=== PATIENT | male | born 1970 | race Two or more races ===

== ENCOUNTER 2016-12-03 12:49 | Emergency (ER) | payer MEDICAID ==
[2016-12-03 13:16] VITALS: BP 118/77
--- NOTE | 2016-12-03 13:28 | EDM.PDOC ---
ED HPI GENERAL MEDICAL PROBLEM - General Chief Complaint: Respiratory Problem Stated Complaint: FEVER COUGH AND SWEATING Time Seen by Provider: 12/03/16 13:22 Source of Information: Reports: Patient History Limitations: Reports: No Limitations - History of Present Illness INITIAL COMMENTS - FREE TEXT/NARRATIVE: With intermittent wheezing, chills x several weeks. Taking antibiotics, unsure what it is. Using nebulizer at home. Fevers up to 100.5. 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: Acetaminophen, Aspirin, Breathing Treatments - Related Data Allergies Allergy/AdvReac Type Severity Reaction Status Date / Time Penicillins Allergy Unknown Rash Verified 12/03/16 13:10 Home Meds: Home Meds NK [No Known Home Meds] 12/03/16 [History] Past Medical History HEENT History: Reports: Allergic Rhinitis Respiratory History: Reports: Bronchitis, Recurrent, TB, Other (See Below) Other Respiratory History: latent tb when diagnosed, treated Gastrointestinal History: Reports: GERD Musculoskeletal History: Reports: Back Pain, Chronic, Fracture Neurological History: Reports: Head Trauma Psychiatric History: Reports: Depression - Past Surgical History Musculoskeletal Surgical History: Reports: ORIF Social & Family History - Tobacco Use Smoking Status *Q: Heavy Tobacco Smoker Years of Tobacco use: 7 Packs/Tins Daily: 1 Used Tobacco, but Quit: No Second Hand Smoke Exposure: No - Alcohol Use Days Per Week of Alcohol Use: 0 - Recreational Drug Use Recreational Drug Use: Yes Recreational Drug Type: Reports: Marijuana/Hashish Recreational Drug Use Frequency: Daily ED ROS GENERAL - Review of Systems Review Of Systems: See Below Constitutional: Reports: Fever, Chills, Night Sweats HEENT: Reports: No Symptoms Respiratory: Reports: Shortness of Breath, Wheezing, Cough Cardiovascular: Reports: No Symptoms Endocrine: Reports: No Symptoms GI/Abdominal: Reports: No Symptoms Musculoskeletal: Reports: No Symptoms Skin: Reports: No Symptoms Neurological: Reports: No Symptoms Psychiatric: Reports: No Symptoms Hematologic/Lymphatic: Reports: No Symptoms ED EXAM, GENERAL - Physical Exam Exam: See Below Exam Limited By: No Limitations General Appearance: Alert, WD/WN, No Apparent Distress Ears: Normal External Exam, Normal Canal, Hearing Grossly Normal, Normal TMs Nose: Normal Inspection, Normal Mucosa, No Blood Throat/Mouth: Normal Inspection, Normal Lips, Normal Teeth, Normal Gums, Normal Oropharynx, Normal Voice, No Airway Compromise Head: Atraumatic, Normocephalic Neck: Normal Inspection, Supple, Non-Tender, Full Range of Motion Respiratory/Chest: Rhonchi, Wheezing Cardiovascular: Normal Peripheral Pulses, Regular Rate, Rhythm, No Edema, No Gallop, No JVD, No Murmur, No Rub Extremities: Normal Inspection, Normal Range of Motion, Non-Tender, Normal Capillary Refill, No Pedal Edema Course - Vital Signs Last Recorded V/S: Last Vital Signs Temp 97.1 F 12/03/16 13:09 Pulse 85 12/03/16 13:09 Resp 18 12/03/16 13:09 BP 118/77 12/03/16 13:09 Pulse Ox 100 12/03/16 13:09 - Orders/Labs/Meds Orders: Active Orders 24 hr Category Date Time Status Chest 2V [CR] Stat Exams 12/03/16 13:27 Taken cefTRIAXone [Rocephin] Med 12/03/16 13:47 Once 1 gm IM ONETIME ONE Labs: Laboratory Tests 12/03/16 Range/Units 13:27 WBC 14.2 H (4.5-11.0) K/uL RBC 5.08 (4.30-5.90) M/uL Hgb 15.8 H (12.0-15.0) g/dL Hct 46.4 (40.0-54.0) % MCV 91 (80-98) fL MCH 31 (27-31) pg MCHC 34 (32-36) % Plt Count 369 (150-400) K/uL Neut % (Auto) 76 H (36-66) % Lymph % (Auto) 12 L (24-44) % Elliott % (Auto) 10 H (2-6) % Eos % (Auto) 0 L (2-4) % Baso % (Auto) 1 (0-1) % Meds: Medications Discontinued Medications Generic Name Dose Route Start Last Admin Trade Name Freq PRN Reason Stop Dose Admin Methylprednisolone Sodium Succinate 125 mg 12/03/16 13:40 Solu-Medrol IM 12/03/16 13:41 ONETIME ONE Departure - Departure Time of Disposition: 13:48 Disposition: Home, Self-Care 01 Condition: Good Clinical Impression: Pneumonia involving right lung Qualifiers: Pneumonia type: due to unspecified organism Lung location: middle lobe of lung Qualified Code(s): J18.1 - Lobar pneumonia, unspecified organism - Discharge Information Instructions: Community-Acquired Pneumonia, Adult, [id number] Referrals: PCP,None [Primary Care Provider] - Forms: ED Department Discharge Additional Instructions: WBC elevated. Chest xray shows right middle lobe pneumonia. COPD changes noted. Strongly encourage smoking cessation. Rocephin 1gm IM, Solumedrol 125mg IM given today. Pt to start Zpak and Medrol Dosepak as directed tomorrow. Rx for Proair inhaler 2 puffs QID as needed for cough written. Increase fluids, rest. Pt to followup if fever or symptoms persist or worsen. - Problem List & Annotations (1) Pneumonia involving right lung SNOMED Code(s): 348813066 Code(s): J18.9 - PNEUMONIA, UNSPECIFIED ORGANISM Status: Acute Priority: Medium Current Visit: Yes Qualifiers: Pneumonia type: due to unspecified organism Lung location: middle lobe of lung Qualified Code(s): J18.1 - Lobar pneumonia, unspecified organism - My Orders Last 24 Hours: My Active Orders 12/03/16 13:27 Chest 2V [CR] Stat 12/03/16 13:47 cefTRIAXone [Rocephin] 1 gm IM ONETIME ONE - Assessment/Plan Last 24 Hours: My Active Orders 12/03/16 13:27 Chest 2V [CR] Stat 12/03/16 13:47 cefTRIAXone [Rocephin] 1 gm IM ONETIME ONE
[2016-12-03] MEDS ORDERED: methylPREDNISolone Sodium Succinate 125 MG/2 ML SDV IM ONE (13:40)
[2016-12-03] MEDS ORDERED: cefTRIAXone 1 GM Vial IM ONE (13:47)
--- NOTE | 2016-12-06 08:27 | CR ---
Chest 2V HISTORY: Fever cough. COMPARISON: 12/02/2010 FINDINGS: There is some faint density in the right lower lobe some of this could represent overlying breast attenuation. Early infiltrate not excluded. Slightly rotated film to the left. No effusions. C ardiac size is normal. No acute congestive change.
== END 2016-12-03 14:53 | disposition home or self-care (01) ==
LOC: JP.ED 12:49
DX: J18.9 Pneumonia, unspecified organism (principal); K21.9 Gastro-esophageal reflux disease without esophagitis; F17.210 Nicotine dependence, cigarettes, uncomplicated; Z88.0 Allergy status to penicillin
CPT/HCPCS: 36415; 71020; 85025; 96372; 99284; J0696; J2930

== ENCOUNTER 2018-08-17 18:02 | Emergency (ER) | payer SELFPAY ==
[2018-08-17 19:59] VITALS: BP 131/87
--- NOTE | 2018-08-17 21:40 | EDM.PDOC ---
ED HPI GENERAL MEDICAL PROBLEM - General Chief Complaint: Eye Problems Stated Complaint: EYE INFECTION Time Seen by Provider: 08/17/18 20:55 Source of Information: Reports: Patient History Limitations: Reports: No Limitations - History of Present Illness INITIAL COMMENTS - FREE TEXT/NARRATIVE: 48-year-old male started noticing swelling of his left lower eyelid yesterday. Pain level 1/10. He has been applying some warm compresses and took some amoxicillin without relief. He denies any discharge from the eye or change in vision. No respiratory symptoms. right eye Pain Score (Numeric/FACES): 4 - Related Data Allergies Allergy/AdvReac Type Severity Reaction Status Date / Time Penicillins Allergy Unknown Rash Verified 08/17/18 20:29 Home Meds: Home Meds NK [No Known Home Meds] 12/03/16 [History] Past Medical History HEENT History: Reports: Allergic Rhinitis Respiratory History: Reports: Bronchitis, Recurrent, TB, Other (See Below) Other Respiratory History: latent tb when diagnosed, treated Gastrointestinal History: Reports: GERD Musculoskeletal History: Reports: Back Pain, Chronic, Fracture Neurological History: Reports: Head Trauma Psychiatric History: Reports: Depression - Past Surgical History Musculoskeletal Surgical History: Reports: ORIF, Other (See Below) Other Musculoskeletal Surgeries/Procedures:: right ankle surgically repaired Social & Family History - Tobacco Use Smoking Status *Q: Current Every Day Smoker Years of Tobacco use: 30 Packs/Tins Daily: 1 - Caffeine Use Caffeine Use: Reports: Soda - Recreational Drug Use Recreational Drug Use: Yes Drug Use in Last 12 Months: Yes Recreational Drug Type: Reports: Marijuana/Hashish Recreational Drug Use Frequency: Daily ED ROS GENERAL - Review of Systems Review Of Systems: See Below Constitutional: Denies: Fever, Chills, Weakness HEENT: Denies: Ear Pain, Rhinitis, Throat Pain Respiratory: Reports: No Symptoms Cardiovascular: Reports: No Symptoms ED EXAM GENERAL W FULL EYE - Physical Exam Exam: See Below Exam Limited By: No Limitations General Appearance: Alert Eyelids: Left: Stye (Lower eyelid) Conjunctiva & Sclera: Bilateral: Normal Appearance, Conjunctival Edema, Discharge, Foreign Body, Injected, Subconjuctival Hemorrhage Cornea Exam: Bilateral: Normal Appearance, Corneal Abrasion, Foreign Body Ears: Normal External Exam Nose: Normal Inspection Throat/Mouth: Normal Inspection Course - Vital Signs Last Recorded V/S: Last Vital Signs Temp 35.7 C 05/17/19 20:29 Pulse 53 L 08/17/18 20:29 Resp 14 08/17/18 20:29 BP 131/87 08/17/18 20:29 Pulse Ox 97 08/17/18 20:29 Departure - Departure Time of Disposition: 21:40 Disposition: Home, Self-Care 01 Condition: Good Clinical Impression: Hordeolum externum left lower eyelid - Discharge Information *PRESCRIPTION DRUG MONITORING PROGRAM REVIEWED*: No *COPY OF PRESCRIPTION DRUG MONITORING REPORT IN PATIENT CARRIE: No Instructions: Melissa Referrals: PCP,None [Primary Care Provider] - Forms: ED Department Discharge Additional Instructions: Sulfacetamide ophthalmologic drops prescribed. Warm compresses and eyelid massage frequently. Care Plan Goals: Follow-up with primary provider if not improving in one week. - Problem List & Annotations (1) Hordeolum externum left lower eyelid SNOMED Code(s): 472484816017986 Code(s): H00.015 - HORDEOLUM EXTERNUM LEFT LOWER EYELID Status: Acute
== END 2018-08-17 22:00 | disposition home or self-care (01) ==
LOC: JP.ED 18:02
DX: H00.015 Hordeolum externum left lower eyelid (principal); F17.210 Nicotine dependence, cigarettes, uncomplicated; Z88.0 Allergy status to penicillin
CPT/HCPCS: 99283

== ENCOUNTER 2018-12-12 08:21 | Emergency (ER) | payer SELFPAY ==
[2018-12-12 08:33] VITALS: BP 140/79; PULSE 73
[2018-12-12] MEDS ORDERED: Albuterol/Ipratropium 3.0-0.5 MG/3 ML Neb Soln NEB ONE (09:01)
--- NOTE | 2018-12-12 09:05 | EDM.PDOC ---
ED HPI GENERAL MEDICAL PROBLEM - General Chief Complaint: Respiratory Problem Stated Complaint: RIGHT SIDE LUNG PAIN/COUGH,SOB Time Seen by Provider: 12/12/18 08:50 Source of Information: Reports: Patient History Limitations: Reports: No Limitations - History of Present Illness INITIAL COMMENTS - FREE TEXT/NARRATIVE: 48-year-old male with 2 weeks of cough, increasing shortness of breath and now productive of green sputum with right upper back pain. No fevers or chills. He does have a history of "pneumonia". He is a smoker, recently was vaping and uses medical marijuana Onset: Gradual Duration: Week(s): (Symptoms for 2 weeks) Associated Symptoms: Reports: Cough, Malaise, Shortness of Breath. Denies: Fever/Chills Right Lower Back Pain Score (Numeric/FACES): 6 - Related Data Allergies Allergy/AdvReac Type Severity Reaction Status Date / Time Penicillins Allergy Unknown Rash Verified 12/12/18 08:28 Home Meds: Home Meds NK [No Known Home Meds] 12/03/16 [History] Medical Marijauna 12/12/18 [History] Past Medical History HEENT History: Reports: Allergic Rhinitis Respiratory History: Reports: Bronchitis, Recurrent, TB, Other (See Below) Other Respiratory History: latent tb when diagnosed, treated Gastrointestinal History: Reports: GERD Musculoskeletal History: Reports: Back Pain, Chronic, Fracture Neurological History: Reports: Head Trauma Psychiatric History: Reports: Depression - Infectious Disease History Infectious Disease History: Reports: Chicken Pox - Past Surgical History Musculoskeletal Surgical History: Reports: ORIF, Other (See Below) Other Musculoskeletal Surgeries/Procedures:: right ankle surgically repaired Social & Family History - Tobacco Use Smoking Status *Q: Current Every Day Smoker Years of Tobacco use: 20 Packs/Tins Daily: 1 Used Tobacco, but Quit: No Second Hand Smoke Exposure: Yes - Caffeine Use Caffeine Use: Reports: Soda - Recreational Drug Use Recreational Drug Use: Yes Recreational Drug Type: Reports: Marijuana/Hashish Recreational Drug Use Frequency: Daily ED ROS GENERAL - Review of Systems Review Of Systems: See Below Constitutional: Reports: Malaise. Denies: Fever, Chills Respiratory: Reports: Shortness of Breath, Cough, Sputum Cardiovascular: Reports: Chest Pain (Right posterior shoulder and chest wall pain) GI/Abdominal: Reports: No Symptoms Musculoskeletal: Reports: Back Pain (Chronic low back pain) Skin: Reports: No Symptoms Neurological: Denies: Headache ED EXAM, GENERAL - Physical Exam Exam: See Below Exam Limited By: No Limitations General Appearance: Alert, No Apparent Distress, Other (Persistent cough) Ears: Normal TMs Throat/Mouth: Normal Inspection Head: Atraumatic Respiratory/Chest: No Respiratory Distress, Other (Diffuse inspiratory and expiratory wheezes are heard with rhonchi especially in the upper right lung) Cardiovascular: Regular Rate, Rhythm. No: Tachycardia Neurological: Alert, Oriented Psychiatric: Normal Affect, Normal Mood Skin Exam: Warm, Dry Course - Vital Signs Last Recorded V/S: Last Vital Signs Temp 95.9 F 12/12/18 08:41 Pulse 73 12/12/18 08:41 Resp 16 12/12/18 08:41 BP 140/79 12/12/18 08:41 Pulse Ox 93 L 12/12/18 08:41 - Orders/Labs/Meds Orders: Active Orders 24 hr Category Date Time Status RT Aerosol Therapy [RC] ASDIRECTED Care 12/12/18 09:01 Active Meds: Medications Discontinued Medications Generic Name Dose Route Start Last Admin Trade Name Lizandro PRN Reason Stop Dose Admin Albuterol/Ipratropium 3 ml 12/12/18 09:01 12/12/18 09:09 Duoneb 3.0-0.5 Mg/3 Ml NEB 12/12/18 09:02 3 ml ONETIME ONE Administration - Re-Assessments/Exams Free Text/Narrative Re-Assessment/Exam: 12/12/18 09:05 A two-view chest x-ray along with a DuoNeb was provided. 12/12/18 09:35 Chest x-ray is normal and the patient had real good objective and subjective improvement from the DuoNeb. He'll be placed on 60 mg of prednisone daily for the next 3-5 days, and also a Zithromax course. Departure - Departure Time of Disposition: 10:00 Disposition: Home, Self-Care 01 Clinical Impression: Bronchitis - Discharge Information Instructions: Acute Bronchitis, Adult, [id number] Referrals: PCP,None [Primary Care Provider] - Forms: ED Department Discharge Care Plan Goals: Take the full course of Zithromax antibiotic as prescribed, and take 6 pills of prednisone with food with your first meal of the day for the next 3-5 days. Try to reduce smoking if possible, and consider rechecking in 2-3 days if not improving satisfactorily. - My Orders Last 24 Hours: My Active Orders 12/12/18 09:01 RT Aerosol Therapy [RC] ASDIRECTED - Assessment/Plan Last 24 Hours: My Active Orders 12/12/18 09:01 RT Aerosol Therapy [RC] ASDIRECTED
--- NOTE | 2018-12-12 09:57 | CRLCR ---
INDICATION: Shortness of breath COMPARISON: Two view chest dated 12/03/2016 TECHNIQUE: Two view chest. FINDINGS: The lungs are clear. There is no evident pneumothorax. The heart, mediastinum and pulmonary vessels are of normal size. There is no evidence of pleural fluid. IMPRESSION: Negative chest. Dictated by Erasmo Sesay MD @ 12/12/2018 9:56:15 AM Dictated by: Erasmo Sesay MD @ 12/12/2018 09:56:28 (Electronically Signed)
== END 2018-12-12 10:00 | disposition home or self-care (01) ==
LOC: JP.ED 08:21
DX: J40 Bronchitis, not specified as acute or chronic (principal); F17.210 Nicotine dependence, cigarettes, uncomplicated; Z88.0 Allergy status to penicillin
CPT/HCPCS: 71046; 94640; 99285-25; J7620-GY

== ENCOUNTER 2019-12-14 19:03 | Emergency (ER) | payer SELFPAY ==
[2019-12-14 19:31] VITALS: BP 129/72; PULSE 57
[2019-12-14] MEDS ORDERED: Albuterol 0.083% 2.5 MG/3 ML Neb Soln NEB ONE (19:41)
--- NOTE | 2019-12-14 19:50 | EDM.PDOC ---
ED HPI GENERAL MEDICAL PROBLEM - General Chief Complaint: Respiratory Problem Stated Complaint: SHARP PAIN RT SIDE,COUGH Time Seen by Provider: 12/14/19 19:35 Source of Information: Reports: Patient, RN History Limitations: Reports: No Limitations - History of Present Illness INITIAL COMMENTS - FREE TEXT/NARRATIVE: 49 yo male smoker presents with wheezing and pleuritic R lower/anterior chest pain. Sx's for 4-5 days. Has been here in the past for similar sx's, but does not still have a family doctor. He denies fever. His cough is nonproductive. He smokes cigarettes at a rate of about 1 ppd and also smoker marijuana. Onset: Gradual Onset Date: 12/09/19 Duration: Day(s): (4-5), Getting Worse Location: Reports: Chest Quality: Reports: Sharp, Stabbing Severity: Moderate Improves with: Reports: Other (holding his breath) Worsens with: Reports: Breathing Context: Reports: Other (See HPI) Associated Symptoms: Reports: Chest Pain (pleuritic), Cough, Shortness of Breath. 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 MANAGER: Reports: Other (see below) (none) - Related Data Allergies Allergy/AdvReac Type Severity Reaction Status Date / Time Penicillins Allergy Unknown Rash Verified 12/14/19 19:16 Home Meds: Home Meds [facility] 12/12/18 [History] Albuterol/Ipratropium [Combivent Respimat] 2 inhalation IH Q6H PRN #1 aer.w.adap 12/14/19 [Rx] diphenhydrAMINE HCL [Benadryl] 25 mg PO BID PRN 12/14/19 [History] predniSONE [Prednisone] 10 mg PO TID #16 tab.ds.pk 12/14/19 [Rx] Past Medical History HEENT History: Reports: Allergic Rhinitis Respiratory History: Reports: Bronchitis, Recurrent, TB, Other (See Below) Other Respiratory History: latent tb when diagnosed, treated in 1994 Gastrointestinal History: Reports: GERD Musculoskeletal History: Reports: Back Pain, Chronic, Fracture, Other (See Below) Other Musculoskeletal History: degenerative disk disease Neurological History: Reports: Head Trauma Psychiatric History: Reports: Addiction, Depression - Infectious Disease History Infectious Disease History: Reports: Chicken Pox - Past Surgical History HEENT Surgical History: Reports: None Respiratory Surgical History: Reports: None Neurological Surgical History: Reports: None Musculoskeletal Surgical History: Reports: ORIF, Other (See Below) Other Musculoskeletal Surgeries/Procedures:: right ankle surgically repaired Social & Family History - Family History Family Medical History: Noncontributory - Tobacco Use Smoking Status *Q: Current Every Day Smoker Years of Tobacco use: 15 Packs/Tins Daily: 1 - Caffeine Use Caffeine Use: Reports: Soda - Recreational Drug Use Recreational Drug Use: No Other Recreational Drug Type: medical canibus use. ED ROS GENERAL - Review of Systems Review Of Systems: See Below Constitutional: Reports: No Symptoms HEENT: Reports: No Symptoms Respiratory: Reports: Shortness of Breath, Wheezing, Pleuritic Chest Pain, Cough. Denies: Sputum, Hemoptysis Cardiovascular: Reports: No Symptoms Endocrine: Reports: No Symptoms GI/Abdominal: Reports: No Symptoms : Reports: No Symptoms Musculoskeletal: Reports: No Symptoms Skin: Reports: No Symptoms Neurological: Reports: No Symptoms ED EXAM, GENERAL - Physical Exam Exam: See Below Exam Limited By: No Limitations General Appearance: Alert, WD/WN, No Apparent Distress Eye Exam: Bilateral Eye: Normal Inspection Ears: Normal External Exam, Normal Canal, Hearing Grossly Normal, Normal TMs Ear Exam: Bilateral Ear: Auricle Normal, Canal Normal, TM normal Nose: Normal Inspection, No Blood Throat/Mouth: Normal Inspection, Normal Lips, Normal Oropharynx, Normal Voice, No Airway Compromise Head: Atraumatic, Normocephalic Neck: Normal Inspection Respiratory/Chest: No Respiratory Distress, No Accessory Muscle Use, Wheezing Cardiovascular: Regular Rate, Rhythm, No Edema GI/Abdominal: Normal Bowel Sounds, Soft, Non-Tender, No Distention Back Exam: Normal Inspection. No: CVA Tenderness (R), CVA Tenderness (L) Neurological: Alert, Oriented, CN II-XII Intact, Normal Cognition, No Motor/Sensory Deficits Psychiatric: Normal Affect, Normal Mood Skin Exam: Warm, Dry, Intact, Normal Color, No Rash Course - Vital Signs Last Recorded V/S: Last Vital Signs Temp 36.6 C 12/14/19 19:30 Pulse 57 L 12/14/19 19:30 Resp 14 12/14/19 19:30 BP 129/72 12/14/19 19:30 Pulse Ox 96 12/14/19 19:30 - Orders/Labs/Meds Orders: Active Orders 24 hr Category Date Time Status RT Aerosol Therapy [RC] ASDIRECTED Care 12/14/19 19:41 Active Labs: Laboratory Tests 12/14/19 12/14/19 Range/Units 19:52 19:52 WBC 8.1 (4.5-11.0) K/uL RBC 5.11 (4.30-5.90) M/uL Hgb 15.6 H (12.0-15.0) g/dL Hct 47.3 (40.0-54.0) % MCV 93 (80-98) fL MCH 31 (27-31) pg MCHC 33 (32-36) % Plt Count 279 (150-400) K/uL D-Dimer, Quantitative < 100 (0.0-400.0) ng/mL Meds: Medications Discontinued Medications Generic Name Dose Route Start Last Admin Trade Name Freq PRN Reason Stop Dose Admin Albuterol 2.5 mg 12/14/19 19:41 12/14/19 19:56 Proventil Neb Soln NEB 12/14/19 19:42 2.5 mg ONETIME ONE Administration Prednisone 20 mg 12/14/19 20:18 Prednisone PO 12/14/19 20:19 ONETIME ONE Departure - Departure Time of Disposition: 20:30 Disposition: Home, Self-Care 01 Condition: Fair Clinical Impression: Bronchospasm, Tobacco abuse disorder - Discharge Information *PRESCRIPTION DRUG MONITORING PROGRAM REVIEWED*: Not Applicable *COPY OF PRESCRIPTION DRUG MONITORING REPORT IN PATIENT CARRIE: Not Applicable Prescriptions: Albuterol/Ipratropium [Combivent Respimat] 2 inhalation IH Q6H PRN #1 aer.w.adap PRN Reason: Wheezing predniSONE [Prednisone] 10 mg PO TID #16 tab.ds.pk Instructions: Bronchospasm, Adult, [id number] Referrals: PCP,None [Primary Care Provider] - Forms: ED Department Discharge Additional Instructions: Use prednisone as directed until gone. Take albuterol 2 puffs every 4 hrs as needed. May also use Combivent 2 puffs every 6 hrs as needed. Smoker as little as possible. Get established with a local doctor to prescribe you preventative medications that may reduce or eliminate the need to come to the ER for episodes like today. Sepsis Event Note (ED) - Evaluation Sepsis Screening Result: No Definite Risk - Focused Exam Vital Signs: Vital Signs Temp Pulse Resp BP Pulse Ox 12/14/19 19:30 36.6 C 57 L 14 129/72 96 - My Orders Last 24 Hours: My Active Orders 12/14/19 19:41 RT Aerosol Therapy [RC] ASDIRECTED - Assessment/Plan Last 24 Hours: My Active Orders 12/14/19 19:41 RT Aerosol Therapy [RC] ASDIRECTED
[2019-12-14] MEDS ORDERED: predniSONE 20 MG Tab PO ONE (20:18)
== END 2019-12-14 20:47 | disposition home or self-care (01) ==
LOC: JP.ED 19:03
DX: J98.01 Acute bronchospasm (principal); F17.210 Nicotine dependence, cigarettes, uncomplicated; Z88.0 Allergy status to penicillin
CPT/HCPCS: 36415; 85027; 85379; 94640; 99285; J7512; 99284

== ENCOUNTER 2019-12-21 12:24 | Emergency (ER) | payer SELFPAY ==
[2019-12-21 12:50] VITALS: BP 110/68; PULSE 68
[2019-12-21] MEDS ORDERED: Tetracaine HCl/PF 0.5% 4 ML Bottle EYELF ONE (13:08)
--- NOTE | 2019-12-21 13:09 | EDM.PDOC ---
ED HPI GENERAL MEDICAL PROBLEM - General Chief Complaint: Eye Problems Stated Complaint: SORE LEFT EYE Time Seen by Provider: 12/21/19 13:09 Source of Information: Reports: Patient History Limitations: Reports: No Limitations - History of Present Illness INITIAL COMMENTS - FREE TEXT/NARRATIVE: pt scratched his left eye with some cardboard 2 days ago. Onset: Other ( this happened thur. ) Duration: Hour(s): Location: Reports: Face Associated Symptoms: Reports: No Other Symptoms, Other (pt is having alot of pain in the rt eye. ) Right Eye Pain Score (Numeric/FACES): 8 - Related Data Allergies Allergy/AdvReac Type Severity Reaction Status Date / Time Penicillins Allergy Mild Rash Verified 12/21/19 12:52 Home Meds: Home Meds Medical [facility] 1 vial IH DAILY 12/12/18 [History] Albuterol/Ipratropium [Combivent Respimat] 2 inhalation IH Q6H PRN #1 aer.w.adap 12/14/19 [Rx] diphenhydrAMINE HCL [Benadryl] 25 mg PO BID PRN 12/14/19 [History] Past Medical History HEENT History: Reports: Allergic Rhinitis Respiratory History: Reports: Bronchitis, Recurrent, TB, Other (See Below) Other Respiratory History: latent tb when diagnosed, treated in 1994 Gastrointestinal History: Reports: GERD Musculoskeletal History: Reports: Back Pain, Chronic, Fracture, Other (See Below) Other Musculoskeletal History: degenerative disk disease Neurological History: Reports: Head Trauma Psychiatric History: Reports: Addiction, Depression - Infectious Disease History Infectious Disease History: Reports: None - Past Surgical History HEENT Surgical History: Reports: None Respiratory Surgical History: Reports: None Neurological Surgical History: Reports: None Musculoskeletal Surgical History: Reports: ORIF, Other (See Below) Other Musculoskeletal Surgeries/Procedures:: right ankle surgically repaired Social & Family History - Family History Family Medical History: Noncontributory - Tobacco Use Smoking Status *Q: Current Every Day Smoker Years of Tobacco use: 10 Packs/Tins Daily: 1 - Caffeine Use Caffeine Use: Reports: Coffee, Soda - Recreational Drug Use Recreational Drug Use: No ED ROS GENERAL - Review of Systems Review Of Systems: See Below Constitutional: Reports: No Symptoms HEENT: Reports: Other (pain in the rt eye from scratching with cardboard. ) Respiratory: Reports: No Symptoms Cardiovascular: Reports: No Symptoms Endocrine: Reports: No Symptoms GI/Abdominal: Reports: No Symptoms : Reports: No Symptoms Musculoskeletal: Reports: No Symptoms ED EXAM GENERAL W FULL EYE - Physical Exam Exam: See Below Text/Narrative:: pt arrived with pain in the rt eye. On thur he was doing some cardboard and a piece of that scratched is upper cornea area. Exam Limited By: No Limitations General Appearance: Alert, Anxious, Moderate Distress, Other (pt has a red injected rt eye. The eye lid is swollen. He scratched his rt eye on thur. ) Cornea Exam: Right: Corneal Abrasion ( This is found in the upper cornea with moderate depth. ) Ears: Normal External Exam Nose: Normal Inspection Throat/Mouth: Normal Inspection Head: Atraumatic Course - Vital Signs Last Recorded V/S: Last Vital Signs Temp 35.8 C L 12/21/19 12:46 Pulse 68 12/21/19 12:46 Resp 16 12/21/19 12:46 BP 110/68 12/21/19 12:46 Pulse Ox 97 12/21/19 12:46 - Orders/Labs/Meds Orders: Active Orders 24 hr Category Date Time Status Gentamicin [Gentak 0.3% Ophth Oint] Med 12/21/19 13:30 Once 11 gm EYERT TID ONE Meds: Medications Discontinued Medications Generic Name Dose Route Start Last Admin Trade Name Freq PRN Reason Stop Dose Admin Tetracaine HCl 1 ml 12/21/19 13:08 12/21/19 13:11 Tetracaine 0.5% Steri-Unit Peg EYELF 12/21/19 13:09 1 drop ASDIRECTED ONE Administration - Re-Assessments/Exams Free Text/Narrative Re-Assessment/Exam: 12/21/19 13:35 pt has a corrnweal abrasion in the upper cornea of moderate depth. Departure - Departure Time of Disposition: 13:36 Disposition: Home, Self-Care 01 Condition: Fair Clinical Impression: Injury of conjunctiva and corneal abrasion without foreign body, right eye, subsequent encounter - Discharge Information Referrals: PCP,None [Primary Care Provider] - Forms: ED Department Discharge Care Plan Goals: tetracaione drops were inserted. gentamycin oint was applied and the eye was patched. He is to leave the patch on until late tomorrow. Motrin 600mg tid for pain, when the patch is removed start with the gentamycin eye drops tid for 5 days. If not improving return. Sepsis Event Note (ED) - Evaluation Sepsis Screening Result: No Definite Risk - Focused Exam Vital Signs: Vital Signs Temp Pulse Resp BP Pulse Ox 12/21/19 12:46 35.8 C L 68 16 110/68 97 - My Orders Last 24 Hours: My Active Orders 12/21/19 13:30 Gentamicin [Gentak 0.3% Ophth Oint] 11 gm EYERT TID ONE - Assessment/Plan Last 24 Hours: My Active Orders 12/21/19 13:30 Gentamicin [Gentak 0.3% Ophth Oint] 11 gm EYERT TID ONE
== END 2019-12-21 13:51 | disposition home or self-care (01) ==
LOC: JP.ED 12:24
DX: S05.01XA Injury of conjunctiva and corneal abrasion without foreign body, right eye, initial encounter (principal); F17.210 Nicotine dependence, cigarettes, uncomplicated; Z88.0 Allergy status to penicillin; W22.8XXA Striking against or struck by other objects, initial encounter
CPT/HCPCS: 99283; A9270

== ENCOUNTER 2020-08-10 16:18 | Emergency (ER) | payer SELFPAY ==
[2020-08-10 16:36] VITALS: BP 143/90; PULSE 64
[2020-08-10] MEDS ORDERED: Albuterol/Ipratropium 3.0-0.5 MG/3 ML Neb Soln NEB ONE (17:04)
--- NOTE | 2020-08-10 17:09 | EDM.PDOC ---
ED HPI GENERAL MEDICAL PROBLEM - General Chief Complaint: Respiratory Problem Stated Complaint: COUGHING, HEADACHES, WHEEZING Time Seen by Provider: 08/10/20 16:55 Source of Information: Reports: Patient, Old Records, RN History Limitations: Reports: No Limitations - History of Present Illness INITIAL COMMENTS - FREE TEXT/NARRATIVE: 50 yo male smoker presents with wheezing, coughing and SOB for the past 5 days. He has no primary care provider and sounds like he has no plans to obtain one. He prefers to come to the ER when he has a problem. He denies a fever. Says if he has elevated BP that is God's wish and he wouldn't treat it, but if he got CP that would be scary and he would come right in. Onset: Gradual Onset Date: 08/05/20 Duration: Day(s): (~5), Getting Worse Location: Reports: Chest Quality: Reports: Other (pain not reported) Severity: Moderate Improves with: Reports: None Worsens with: Reports: Other (time/smoking) Context: Reports: Other (See HPI) Associated Symptoms: Reports: Cough, Shortness of Breath. 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 (see below) (none) Headache Pain Score (Numeric/FACES): 4 - Related Data Allergies Allergy/AdvReac Type Severity Reaction Status Date / Time Penicillins Allergy Mild Rash Verified 08/10/20 16:40 Home Meds: [facility] DAILY 12/12/18 [History] Albuterol/Ipratropium [Combivent Respimat] 2 inhalation IH Q6H PRN #1 aer.w.adap 12/14/19 [Rx] diphenhydrAMINE HCL [Benadryl] 25 mg PO BID PRN 12/14/19 [History] Past Medical History HEENT History: Reports: Allergic Rhinitis Respiratory History: Reports: Bronchitis, Recurrent, Pneumonia, Recurrent, TB, Other (See Below) Other Respiratory History: latent tb Gastrointestinal History: Reports: GERD Musculoskeletal History: Reports: Back Pain, Chronic, Fracture, Other (See Below) Other Musculoskeletal History: degenerative disk disease Neurological History: Reports: Head Trauma Psychiatric History: Reports: Anxiety, Depression, PTSD - Infectious Disease History Infectious Disease History: Reports: Chicken Pox - Past Surgical History Head Surgeries/Procedures: Reports: None HEENT Surgical History: Reports: None Respiratory Surgical History: Reports: None GI Surgical History: Reports: None Neurological Surgical History: Reports: None Musculoskeletal Surgical History: Reports: ORIF, Other (See Below) Other Musculoskeletal Surgeries/Procedures:: right ankle surgically repaired Social & Family History - Family History Family Medical History: No Pertinent Family History - Tobacco Use Tobacco Use Status *Q: Current Every Day Tobacco User Years of Tobacco use: 30 Packs/Tins Daily: 1 - Caffeine Use Caffeine Use: Reports: Soda - Recreational Drug Use Recreational Drug Use: Yes Drug Use in Last 12 Months: Yes Recreational Drug Type: Reports: Marijuana/Hashish, Other (see below) Other Recreational Drug Type: medical marijuana Recreational Drug Use Frequency: Daily ED ROS GENERAL - Review of Systems Review Of Systems: See Below Constitutional: Reports: No Symptoms HEENT: Reports: No Symptoms Respiratory: Reports: Shortness of Breath, Wheezing, Cough. Denies: Sputum, Hemoptysis Cardiovascular: Reports: No Symptoms GI/Abdominal: Reports: No Symptoms : Reports: No Symptoms Musculoskeletal: Reports: No Symptoms Skin: Reports: No Symptoms ED EXAM, GENERAL - Physical Exam Exam: See Below Exam Limited By: No Limitations General Appearance: Alert, WD/WN, No Apparent Distress Eye Exam: Bilateral Eye: Normal Inspection Ears: Normal External Exam, Normal Canal, Hearing Grossly Normal, Normal TMs Ear Exam: Bilateral Ear: Auricle Normal, Canal Normal, TM normal Nose: Normal Inspection, No Blood Throat/Mouth: Normal Inspection, Normal Lips, Normal Oropharynx, Normal Voice, No Airway Compromise Head: Atraumatic, Normocephalic Neck: Normal Inspection Respiratory/Chest: No Respiratory Distress, Normal Breath Sounds, No Accessory Muscle Use, Wheezing Cardiovascular: Regular Rate, Rhythm, No Edema Extremities: Normal Inspection Neurological: Alert, Oriented, CN II-XII Intact, Normal Cognition, No Motor/Sensory Deficits Psychiatric: Normal Affect, Normal Mood Skin Exam: Warm, Dry, Intact, Normal Color, No Rash Course - Vital Signs Last Recorded V/S: Last Vital Signs Temp 35.3 C L 08/10/20 16:35 Pulse 64 08/10/20 16:35 Resp 18 08/10/20 16:35 BP 143/90 H 08/10/20 16:35 Pulse Ox 95 08/10/20 16:35 - Orders/Labs/Meds Orders: Active Orders 24 hr Category Date Time Status RT Aerosol Therapy [RC] ASDIRECTED Care 08/10/20 17:04 Active RT Aerosol Therapy [RC] ASDIRECTED Care 08/10/20 17:44 Ordered predniSONE Med 08/10/20 17:45 Once 20 mg PO ONETIME ONE Meds: Medications Discontinued Medications Generic Name Dose Route Start Last Admin Trade Name Lizandro PRN Reason Stop Dose Admin Albuterol 2.5 mg 08/10/20 17:44 Albuterol 0.083% 2.5 Mg/3 Ml Neb Soln NEB 08/10/20 17:45 ONETIME ONE Albuterol/Ipratropium 3 ml 08/10/20 17:04 08/10/20 17:14 Albuterol/Ipratropium 3.0-0.5 Mg/3 Ml Neb Soln NEB 08/10/20 17:05 3 ml ONETIME ONE Administration - Re-Assessments/Exams Free Text/Narrative Re-Assessment/Exam: 08/10/20 17:45 Some improvement, still wheezing. Has no interest in being admitted. Will give one more albuterol neb and discharge. Departure - Departure Time of Disposition: 18:00 Disposition: Home, Self-Care 01 Condition: Fair Clinical Impression: Bronchospasm, Tobacco dependence - Discharge Information *PRESCRIPTION DRUG MONITORING PROGRAM REVIEWED*: Not Applicable *COPY OF PRESCRIPTION DRUG MONITORING REPORT IN PATIENT CARRIE: Not Applicable Instructions: Smoking Tobacco Information, Adult, Steps to Quit Smoking, Easy -to-Read, Bronchospasm, Adult Referrals: PCP,None [Primary Care Provider] - Forms: ED Department Discharge Additional Instructions: Work on quitting smoking. We encourage you to get a doctor of your own to follow up with and refill your prescriptions. Take the prednisone and albuterol as directed. Sepsis Event Note (ED) - Evaluation Sepsis Screening Result: No Definite Risk - Focused Exam Vital Signs: Vital Signs Temp Pulse Resp BP Pulse Ox 08/10/20 16:35 35.3 C L 64 18 143/90 H 95 - My Orders Last 24 Hours: My Active Orders 08/10/20 17:04 RT Aerosol Therapy [RC] ASDIRECTED 08/10/20 17:44 RT Aerosol Therapy [RC] ASDIRECTED 08/10/20 17:45 predniSONE 20 mg PO ONETIME ONE - Assessment/Plan Last 24 Hours: My Active Orders 08/10/20 17:04 RT Aerosol Therapy [RC] ASDIRECTED 08/10/20 17:44 RT Aerosol Therapy [RC] ASDIRECTED 08/10/20 17:45 predniSONE 20 mg PO ONETIME ONE
[2020-08-10] MEDS ORDERED: Albuterol 0.083% 2.5 MG/3 ML Neb Soln NEB ONE (17:44)
[2020-08-10] MEDS ORDERED: predniSONE 20 MG Tab PO ONE (17:45)
== END 2020-08-10 18:13 | disposition home or self-care (01) ==
LOC: JP.ED 16:18
DX: J98.01 Acute bronchospasm (principal); F17.200 Nicotine dependence, unspecified, uncomplicated; Z88.0 Allergy status to penicillin
CPT/HCPCS: 94640; 99284; J7512; J7620-GY

== ENCOUNTER 2021-02-24 18:22 | Emergency (ER) | payer SELFPAY ==
[2021-02-24 18:41] VITALS: BP 108/64; PULSE 64
--- NOTE | 2021-02-24 18:53 | EDM.PDOC ---
ED HPI GENERAL MEDICAL PROBLEM - General Chief Complaint: Skin Complaint Stated Complaint: POSSIBLE INGROWN TOENAIL-PAIN Time Seen by Provider: 02/24/21 18:35 Source of Information: Reports: Patient, RN History Limitations: Reports: No Limitations - History of Present Illness INITIAL COMMENTS - FREE TEXT/NARRATIVE: 51 yo male presents with pain and redness to the skin around his R 2nd toe that has been slowly worsening over the last 2 weeks. He has tried poking it with a needled. He has not been seen in the clinic, says he doesn't have a provider. Is not new in the area. Onset: Gradual Onset Date: 02/10/21 Duration: Week(s): (2), Getting Worse Location: Reports: Lower Extremity, Right Quality: Reports: Dull Severity: Mild Improves with: Reports: None Worsens with: Reports: Other (time, bumping area) Context: Reports: Other (See HPI) Associated Symptoms: Reports: No Other Symptoms. Denies: Fever/Chills Treatments [employer]: Reports: Other (see below) (poked with a needle) Right Toe-Long Pain Score (Numeric/FACES): 0 - Related Data Allergies Allergy/AdvReac Type Severity Reaction Status Date / Time Penicillins Allergy Mild Rash Verified 02/24/21 18:35 Home Meds: Home Meds Medical [facility] 1 vial IH DAILY 12/12/18 [History] Past Medical History HEENT History: Reports: Allergic Rhinitis Respiratory History: Reports: Bronchitis, Recurrent, Pneumonia, Recurrent, TB, Other (See Below) Other Respiratory History: latent tb Gastrointestinal History: Reports: GERD Musculoskeletal History: Reports: Back Pain, Chronic, Fracture, Other (See Below) Other Musculoskeletal History: degenerative disk disease Neurological History: Reports: Head Trauma Psychiatric History: Reports: Anxiety, Depression, PTSD - Infectious Disease History Infectious Disease History: Reports: Chicken Pox - Past Surgical History Head Surgeries/Procedures: Reports: None Musculoskeletal Surgical History: Reports: ORIF, Other (See Below) Other Musculoskeletal Surgeries/Procedures:: right ankle surgically repaired Social & Family History - Family History Family Medical History: No Pertinent Family History - Tobacco Use Tobacco Use Status *Q: Heavy Tobacco User Years of Tobacco use: 30 Packs/Tins Daily: 1 - Caffeine Use Caffeine Use: Reports: Energy Drinks - Recreational Drug Use Recreational Drug Use: No ED ROS GENERAL - Review of Systems Review Of Systems: See Below Constitutional: Reports: No Symptoms. Denies: Fever, Chills Musculoskeletal: Reports: Foot Pain (R 2nd toe pain) Skin: Reports: Erythema (around medial and prox sides of the R 2nd toenail. ) Neurological: Reports: No Symptoms ED EXAM, SKIN/RASH Exam: See Below Exam Limited By: No Limitations General Appearance: Alert, WD/WN, No Apparent Distress Extremities: Other (redness around the R 2nd toenail, no pus visible) Neurological: Alert, Oriented, CN II-XII Intact, Normal Cognition, No Motor/Sensory Deficits Psychiatric: Normal Affect, Normal Mood Skin: Warm, Dry, Intact, Normal Color, No Rash Location, Skin: Lower Extremity, Right Characteristics: Erythematous Associated features: Tenderness. No: Swelling, Lymphangitis Course - Vital Signs Last Recorded V/S: Last Vital Signs Temp 36.9 C 02/24/21 18:35 Pulse 64 02/24/21 18:35 Resp 16 02/24/21 18:35 BP 108/64 02/24/21 18:35 Pulse Ox 96 02/24/21 18:35 Departure - Departure Time of Disposition: 18:55 Disposition: Home, Self-Care 01 Condition: Good Clinical Impression: Paronychia of second toe of right foot - Discharge Information *PRESCRIPTION DRUG MONITORING PROGRAM REVIEWED*: Not Applicable *COPY OF PRESCRIPTION DRUG MONITORING REPORT IN PATIENT CARRIE: Not Applicable Instructions: Paronychia, [id number] Referrals: PCP,None [Primary Care Provider] - Additional Instructions: Warm soaks 2-3 times a day for 15-20 minutes each time. Take cephalexin as d irected. Use acetaminophen for pain relief. Don't poke it with needles any more. Call Monday to schedule an appt at a clinic of your choice for recheck sometime early next week. Sepsis Event Note (ED) - Evaluation Sepsis Screening Result: No Definite Risk - Focused Exam Vital Signs: Vital Signs Temp Pulse Resp BP Pulse Ox 02/24/21 18:35 36.9 C 64 16 108/64 96 02/24/21 18:31 36.9 C 64 16 108/64 96
== END 2021-02-24 19:02 | disposition home or self-care (01) ==
LOC: JP.ED 18:22
DX: L03.031 Cellulitis of right toe (principal); Z88.0 Allergy status to penicillin; Z72.0 Tobacco use
CPT/HCPCS: 99283

== ENCOUNTER 2022-12-24 15:11 | Emergency (ER) | payer SELFPAY ==
[2022-12-24 15:30] VITALS: BP 139/80; PULSE 78
[2022-12-24 19:29] LABS: BASOPHILS ABSOLUTE AUTO 0.04 K/uL (0.00-0.10); BASOPHILS PERCENT AUTO 0.4 % (0.1-1.3); EOSINOPHILS ABSOLUTE AUTO 0.04 K/uL (0.00-0.40); EOSINOPHILS PERCENT AUTO 0.4 % (0.0-5.4); HEMATOCRIT 42.3 % (38.4-49.7); HEMOGLOBIN 14.6 g/dL (12.9-16.9); IMMATURE GRAN ABSOLUTE AUTO 0.03 K/uL (0.00-0.23); IMMATURE GRAN PERCENT AUTO 0.3 % (0.0-0.7); LYMPHOCYTES PERCENT AUTO 15.6 % (11.4-47.7); MEAN CORPUSCULAR HGB CONC 34.5 g/dL (31.6-35.5); MEAN CORPUSCULAR VOLUME 92.8 fL (81.4-99.0); MONOCYTES ABSOLUTE AUTO 0.67 K/uL (0.20-0.90); MONOCYTES PERCENT AUTO 7.5 % (3.3-12.6); NEUTROPHILS ABSOLUTE AUTO 6.77 K/uL (1.0-7.6); NEUTROPHILS PERCENT AUTO 75.8 % (40.0-78.1); PLATELET COUNT,PLT 333 K/uL (130-375); RED BLOOD CELL COUNT 4.56 M/uL (4.14-5.76)
[2022-12-24 19:46] LABS: C-REACTIVE PROTEIN 7.91 mg/dL (0.0-0.3); CALCIUM 8.6 mg/dL (8.5-10.1); CREATININE 0.9 mg/dL (0.8-1.3); EST CRCL DRUG DOSING (CG) 96.56 mL/min; POTASSIUM,K 3.2 mmol/L (3.6-5.2)
[2022-12-24 19:47] LABS: ANION GAP 13.2 mmol/L (5.0-14.0)
== END 2022-12-24 20:13 | disposition home or self-care (01) ==
LOC: JP.ED 15:11
DX: J44.0 Chronic obstructive pulmonary disease with (acute) lower respiratory infection (principal); F17.210 Nicotine dependence, cigarettes, uncomplicated; Z20.822 Contact with and (suspected) exposure to COVID-19; Z88.0 Allergy status to penicillin
CPT/HCPCS: 36415; 71046; 71046-26; 80048; 85025; 86140; 99283; 99285; U0002